=== PATIENT | female | born 1945 | race Caucasian/White ===

== ENCOUNTER 2018-07-01 13:07 | Emergency (ER) | payer MEDICARE, OTHER ==
[~2018-07-01] VITALS: Ht 165.1 cm; Wt 119.0 kg
[~2018-07-01 13:07] MED LIST: ACTOS 45 MG45 MG PO; AVALIDE 300-121 EACH PO; CADUET 10 MG-21 EACH PO; CYMBALTA60 MG PO; HUMALOG100 UNIT/1 SQ; LANTUS SC; MULTIPLE VITAM1 EAC1 PO; PERCOCET 5-3251 EACH PO; SYNTHROID150 MCG PO; TOPROL XL100 MG PO
[2018-07-01 15:36] VITALS: BP 114/80
== END 2018-07-01 15:38 | disposition home or self-care (01) ==
LOC: M.ERS 13:07
DX: S63.91XA Sprain of unspecified part of right wrist and hand, initial encounter (principal); S80.01XA Contusion of right knee, initial encounter; S00.83XA Contusion of other part of head, initial encounter; E11.9 Type 2 diabetes mellitus without complications; I10 Essential (primary) hypertension; Z79.4 Long term (current) use of insulin; Z88.0 Allergy status to penicillin; W01.0XXA Fall on same level from slipping, tripping and stumbling without subsequent striking against object, initial encounter; Y93.89 Activity, other specified; Y92.89 Other specified places as the place of occurrence of the external cause; Y99.8 Other external cause status

== ENCOUNTER 2019-08-14 06:10 | Inpatient (IN) | payer MEDICARE, OTHER ==
[~2019-08-14 06:10] MED LIST changes: +BYDUREON P2 MG/0.65 SUBQ; +GLIPIZIDE 10 MG10 MG PO; +JANUVIA100 MG PO; -LANTUS SC; +LANTUS SUBQ; +LIPITOR 20 MG T20 M1 PO; -MULTIPLE VITAM1 EAC1 PO; +MULTIPLE VITAM1 EAC2 PO; +VYZULTA5 ML OPHTHALMIC
[2019-08-14 06:32] LABS: HEMATOCRIT 40.6 % (37.0-47.0); HEMOGLOBIN 13.5 gm/dL (12.0-15.0); MCH 29.4 pg (26.0-34.0); MCHC 33.2 g/dL (28.0-37.0); MCV 88.5 fL (80.0-100.0); MPV 8.5 fl. (7.2-11.1); RBC 4.59 mil/uL (4.20-5.00); RDW-CV 17.6 % (10.5-14.5); WBC 8.8 thou/uL (4.0-11.0)
[2019-08-14 06:50] LABS: CALCIUM 9.6 mg/dL (8.5-10.1); POTASSIUM 4.8 mmol/L (3.5-5.1)
[2019-08-14 06:54] LABS: ALBUMIN 3.4 g/dL (3.4-5.0); TOTAL BILIRUBIN 0.4 mg/dL (<0.1-1.0); TOTAL PROTEIN 7.2 g/dL (6.4-8.2)
[2019-08-14 13:57] VITALS: BP 160/75
--- NOTE | 2019-08-14 15:44 | NUR ---
ASSESSMENT COMPLETE. PT ALERT AND ORIENTED X4. PT DENIES NEED FOR PAIN MEDICATION. TOLERATED LUNCH AND DENIES N/V. PT USED BEDPAN WHEN ADMITTED TO FLOOR. PT HAS FAMILY AT BEDSIDE. ARM IN SLING. ACCU CHECK ACHS. PT IS ON ROOM AIR WITH CONTINOUS PULSE OX IN PLACE. PT/OT CONSULT. IV IN RIGHT HAND, SALINE LOCKED. SEE ASSESSMENT AND VITALS FOR OTHER DETAILS. BED ALARM ON, CALL LIGHT WITHIN REACH. WILL CONTINUE PLAN OF CARE
[2019-08-14 15:48] VITALS: BP 154/73
--- NOTE | 2019-08-14 16:53 | EKG ---
[place] [address] ELECTROCARDIOGRAM REPORT Name: MAXIMO OLMEDO Room: [address] ADM IN M.R.#: [id number] Admission: 08/14/19 Attend Phys: Shaylee Newman Discharge: Date of : 47 Report #: [id number] THIS REPORT FOR: //name// [facility] Test Date: 2019-08-14 Test Time: 06:38:30 Pat Name: MAXIMO OLMEDO Department: Room: [facility] Gender: F [employer] Instructor: ROSE : 1945 Requested By: Cole Thakkar Order Number: [id number] Neville MD: Yang Tang Measurements Intervals [place] Rate: 67 P: 26 NM: 142 QRS: -34 QRSD: 135 T: 20 QT: 465 QTc: 491 Interpretive Statements Sinus rhythm left axis septal q waves Baseline wander in lead(s) I,II,III,aVR,aVF,V1,V2,V5,V6 Compared to ECG 02/25/2010 10:57:50 Sinus bradycardia no longer present Electronically Signed On 08-14-2019 16:52:53 CDT by Yang Tang [email or web address] <ELECTRONICALLY SIGNED> By: Yang Tang MD, [facility] 08/14/19 1652 0638 [id number] Yang Tagn MD, [facility] /EPI
[2019-08-14 21:00] VITALS: BP 179/77
[2019-08-15] VITALS: BP 164/69
[2019-08-15 04:00] VITALS: BP 160/74
--- NOTE | 2019-08-15 06:42 | NUR ---
PATIENT SLEPT MOST OF THE NIGHT. IV REMAINS SALINE LOCKED. PATIENT WAS GIVEN PAIN MEDICINE TWICE THIS SHIFT. LEFT SHOULDER REMAINS IN SLING. PATIENT REMAINS ON ROOM AIR WITH CAPNO IN PLACE. WILL CONTINUE TO MONITOR.
[2019-08-15 07:08] VITALS: BP 148/66
--- NOTE | 2019-08-15 07:34 | H ---
[place] [address] HISTORY AND PHYSICAL Name: MAXIMO OLMEDO Room: [address] IN .R.#: [id number] Admission: 08/14/19 Attend Phys: Shaylee Newman Discharge: Date of : 47 Report #: [id number] THIS REPORT FOR: //name// CC: Cole Aburto DATE OF SERVICE: 08/14/2019 CHIEF COMPLAINT: "My left shoulder hurts." HISTORY OF PRESENT ILLNESS: This is the second [facility] admission for this 74-year-old female who is admitted complaining of left shoulder pain. She fell onto her left shoulder on 07/24/2019 sustaining a displaced fracture of her left humeral neck. She was placed into a shoulder immobilizer. The fracture remained displaced and she was advised to become hospitalized for an open reduction and internal fixation of her fracture. Risks and benefits of surgery along with possible complications were discussed with her. PAST MEDICAL HISTORY: She had the usual childhood diseases without sequela. She has been treated for arthritis, diabetes mellitus, hypertension, pneumonia, and thyroid disease. PAST SURGICAL HISTORY: Her prior surgical experiences included cataract excisions, a hysterectomy, skin cancer excisions for tonsillectomy and tubal ligation. FAMILY HISTORY: Positive for diabetes, heart disease and hypertension. SOCIAL HISTORY: Not remarkable. A 12-point review of systems was not remarkable except for the above-mentioned. PHYSICAL EXAMINATION: GENERAL: Revealed a well-developed, well-nourished female who is alert, cooperative, and well oriented x 3. HEENT: Not remarkable. Neck is supple with no masses, adenitis or tenderness. LUNGS: Clear to auscultation and percussion. HEART: There was normal sinus rhythm with no arrhythmias or murmurs heard. ABDOMEN: It was soft and nontender with no masses, organomegaly or hernias. GENITALIA: Normal female externally. EXTREMITIES: She was tender about the left shoulder and complained of pain upon [place] [address] HISTORY AND PHYSICAL Name: MAXIMO OLMEDO Room: [address] IN ..#: [id number] Admission: 08/14/19 Attend Phys: Shaylee Newman Discharge: Date of : 47 Report #: [id number] DIAGNOSES: Displaced fracture, left humeral neck, diabetes mellitus, hypertension, thyroid disease. <ELECTRONICALLY SIGNED> By: Cole Thakkar MD 08/15/19 0734 2159 [id number] Thakkar MD /nt
--- NOTE | 2019-08-15 07:35 | OP ---
[facility] [address] [place] [address] OPERATIVE REPORT Name: MAXIMO OLMEDO Room: [address] IN M.R.#: [id number] Admission: 08/14/19 Attend Phys: Shaylee Newman Discharge: Date of : 47 Report #: [id number] THIS REPORT FOR: //name// CC: Cole Aburto DATE OF SERVICE: 08/14/2019 PREOPERATIVE DIAGNOSIS: Displaced fracture of the left humeral neck. POSTOPERATIVE DIAGNOSIS: Displaced fracture of the left humeral neck. PROCEDURE PERFORMED: Open reduction and internal fixation of displaced left humeral neck fracture with bone grafting. DESCRIPTION OF PROCEDURE: Under general endotracheal anesthesia, the patient was placed onto the operating room table in the supine position. The patient was placed in a chair back type position. A routine prep and drape was performed of the left shoulder and arm. Following the appropriate timeout of the procedure, a 5-inch skin incision was made over the anterior aspect of the shoulder. The incision was begun at the coracoid process of the scapula and carried distally along the deltopectoral groove. The incision was carried through the skin, subcutaneous tissue and fascia. The cephalic vein was retracted medially. The dissection was carried down to the anterior aspect of the humeral head. The fracture site was exposed and debrided. The fracture was then reduced into an anatomic position. A smooth K-wire was passed across the fracture site to secure it. A compression plate with its component screws were then inserted and seated under C-arm fluoroscopy control. The wound was irrigated. DD bone graft by [facility] [place] was applied about the fracture site. The wound was irrigated every 20 minutes with bacitracin solution. Bleeding was controlled throughout the procedure by electrocautery. The wound was closed in layers with 0 Vicryl for the fascial layer. The subcutaneous tissue was closed with 2-0 Vicryl and the skin was closed with skin stephanie. A sterile dressing was applied. The patient tolerated the procedure well and was returned to the recovery area in good condition. <ELECTRONICALLY SIGNED> By: Cole Thakkar MD 08/15/19 0735 1022 [id number] Thakkar MD /nt
--- NOTE | 2019-08-15 12:11 | NUR ---
SW met with pt to complete initial assessment, introduce self, and SW role. Pt alert, oriented. Pt lives at home alone and has supportive dtrs. Pt plan is to dc to pt preference of [facility]. Pt dtrs live nearer to that location and so does the pt. SW to continue to follow and to assist with placement for rehab at dc.
--- NOTE | 2019-08-15 15:29 | NUR ---
ASSESSMENT COMPLETE. PT ALERT AND ORIENTED X4. PT UP IN CHAIR MOST OF THE DAY. PRN PAIN MEDICATION GIVEN NEEDED. PHYSICAL AND OCCUPATIONAL THERAPY WORKED WITH PATIENT. PT IS UP ONE ASSIST WITH CANE AND GAIT BELT. PT HAS NO OTHER CONCERNS. SEE ASSESSMENT AND VITALS FOR OTHER DETAILS. CALL LIGHT WITHIN REACH, WILL CONTINUE PLAN OF CARE
[2019-08-15 16:07] VITALS: BP 117/56
[2019-08-15 21:00] VITALS: BP 127/64
--- NOTE | 2019-08-16 05:54 | NUR ---
PATIENT SLEPT MOST OF THE NIGHT. L SHOULDER REMAINS IN SLING. PATIENT WAS GIVEN PAIN MEDICINE ONCE THIS SHIFT. WILL CONTINUE TO MONITOR.
[2019-08-16 07:55] VITALS: BP 155/71
[2019-08-16 09:26] LABS: ABSOLUTE LYMPHOCYTES 1.1 thou/uL (0.8-5.3); ABSOLUTE MONOCYTES 1.2 thou/uL (0.0-1.2); ABSOLUTE NEUTROPHILS 9.7 thou/uL (1.6-8.1); BASOPHILS 0.2 %; EOSINOPHILS 0.2 %; HEMATOCRIT 31.6 % (37.0-47.0); HEMOGLOBIN 10.5 gm/dL (12.0-15.0); LYMPHOCYTES 9.5 %; MCH 29.6 pg (26.0-34.0); MCHC 33.4 g/dL (28.0-37.0); MCV 88.8 fL (80.0-100.0); MONOCYTES 9.6 %; MPV 8.7 fl. (7.2-11.1); NUCLEATED RBCS 0 /100WBC; PLATELET COUNT* 276 thou/uL (150-400); POLYS 80.5 %; RBC 3.56 mil/uL (4.20-5.00); RDW-CV 17.3 % (10.5-14.5)
[2019-08-16 09:31] LABS: CALCIUM 8.9 mg/dL (8.5-10.1); CREATININE 0.9 mg/dL (0.6-1.3); POTASSIUM 4.5 mmol/L (3.5-5.1)
--- NOTE | 2019-08-16 15:22 | NUR ---
REFUGIO spoke with pt dtr and with [facility] and faxed referral for pt to dc to Swing Bed Unit at [facility] most likely dc tomorrow. [facility] ph [phone] fax [phone].
[2019-08-16 15:47] VITALS: BP 144/71
--- NOTE | 2019-08-16 18:25 | NUR ---
PATIENT RESTING UP IN CHAIR. PATIENT HAS WORKED WITH PHYSICAL AND OCCUPATIONAL THERAPIES TODAY. PATIENT IS NWB TO LEFT SHOULDER WITH SLING IN PLACE. DRESSING CHANGED WITH DR WRIGHT THIS AFTERNOON. PATIENT HAS PAIN WELL CONTROLLED WITH HYDROCODONE. PATIENT DENIES ANY NEEDS AT THIS TIME. CALL LIGHT WITHIN REACH.
[2019-08-16 20:51] VITALS: BP 169/62
--- NOTE | 2019-08-17 05:42 | NUR ---
PATIENT SLEPT MOST OF THE NIGHT. IV REMAINS IN PLACE. LEFT SHOULDER REMAINS IN SLING. PATIENT IS POSSIBLY DISCHARGING TO [facility] TODAY. WILL CONTINUE TO MONITOR.
[2019-08-17 08:00] VITALS: BP 157/69
[2019-08-17] MEDS ORDERED: RESTORIL30 MG PO (09:21)
[2019-08-17] MEDS ORDERED: GLUCOTROL5 MG PO (09:21)
[2019-08-17] MEDS ORDERED: XARELTO10 MG PO (09:21)
[2019-08-17] MEDS ORDERED: COLACE 100 MG100 MG PO (09:21)
[2019-08-17] MEDS ORDERED: ASPIR 8181 MG PO (09:21)
[2019-08-17] MEDS ORDERED: HYDROCODON-ACE1 EAC7 PO (09:21)
[2019-08-17 10:19] VITALS: BP 157/69
--- NOTE | 2019-08-17 10:52 | NUR ---
leticia f/u w/sarabjit gonzáles. lft to see if facility able to accept pt.
[2019-08-17 12:31] VITALS: BP 157/69
--- NOTE | 2019-08-17 12:32 | NUR ---
cm received call back from [facility]. bed avialable. nurse, nursing unit coordinator, pt and pt's dtr, nichole notified, as pt was on the phone [place] while this cm was in her room notifying of d/c. rn given number to call report [phone] . d/c orders, d/c med list and facesheet faxed to [facility] at [phone]. pt's dtr will provide transportation.
--- NOTE | 2019-08-17 13:00 | NUR ---
PATIENT DISCHARGED TO [facility]. PATIENT GIVEN COPY OF CHART AND DISCHARGE ORDERS. IV REMOVED. PATIENT BELONGINGS PACKED. REPORT CALLED TO KIT. PATIENT DENIES ANY FURTHER NEEDS. PATIENT TAKEN BY WHEELCHAIR TO EXIT. LEFT WITH DAUGHTER.
== END 2019-08-17 13:00 | DRG 493 ==
LOC: M.SUR 06:10 → M.TBA 11:07 → M.3W 11:07
PROVIDERS: Internal Medicine; Specialist; ADMIT Internal Medicine
PROC: 0PSD04Z Reposition Left Humeral Head with Internal Fixation Device, Open Approach (ICD-10-PCS; principal; 2019-08-14)
DX: S42.292A Other displaced fracture of upper end of left humerus, initial encounter for closed fracture (principal); R71.0 Precipitous drop in hematocrit; M19.90 Unspecified osteoarthritis, unspecified site; E11.65 Type 2 diabetes mellitus with hyperglycemia; I10 Essential (primary) hypertension; Z87.01 Personal history of pneumonia (recurrent); Z83.3 Family history of diabetes mellitus; Z82.49 Family history of ischemic heart disease and other diseases of the circulatory system; Z88.0 Allergy status to penicillin; Z79.4 Long term (current) use of insulin; Z79.82 Long term (current) use of aspirin; Z79.899 Other long term (current) drug therapy; W18.39XA Other fall on same level, initial encounter; Y93.89 Activity, other specified; Y92.89 Other specified places as the place of occurrence of the external cause; Y99.8 Other external cause status; Z23 Encounter for immunization

== ENCOUNTER → 2020-09-19 | Outpatient (CLI) | payer MEDICARE, OTHER ==
[~2020-09-19] MED LIST changes: +ASPIR 8181 MG PO; +COLACE 100 MG100 MG PO; +GLUCOTROL5 MG PO; +HYDROCODON-ACE1 EAC7 PO; +RESTORIL30 MG PO; +XARELTO10 MG PO
== END ==
LOC: M.ULTRA 09-12 09:30
PROVIDERS: ATTEND Family Medicine
DX: R79.89 Other specified abnormal findings of blood chemistry (principal)